=== PATIENT | female | born 1990 | race Caucasian/White ===

== ENCOUNTER 2017-08-10 12:01 | Inpatient (IN) ==
[2017-08-10 12:54] LABS: Basophils % 0.2 % (0.0-0.8); Eosinophils # 0.2 10*3/uL (0.0-0.87); Eosinophils % 2.6 % (0.00-10.9); Hematocrit 28.2 VOL% (35.7-47.0); Hemoglobin 8.6 GM/DL (12.0-16.0); Immature Granulocytes % 1.7 %; Immature Granulocytes Absolute 0.11 #; Lymphocytes # 1.3 10*3/uL (1.4-4.0); Lymphocytes % 20.4 % (21.3-54.2); Mean Corpuscular HGB Conc 30.5 GM/DL (32-36); Mean Corpuscular Hemoglobin 25 PG (27-34); Mean Corpuscular Volume 80.3 FL (87-102); Mean Platelet Volume 9.9 FL (9.6-12.0); Monocytes # 0.4 10*3/uL (0.11-0.8); Monocytes % 6.6 % (1.7-12.7); Neutrophils # 4.5 10*3/uL (1.4-7.4); Neutrophils % 68.5 % (38.7-73.9); Platelet Count 151 T/CUMM (130-400); Red Blood Count 3.51 MC/CUMM (3.8-5.5); Red Cell Distribution Width 15.8 % (9.3-17.3); White Blood Count 6.5 T/CUMM (4-12)
[2017-08-10] MEDS: hydrALAZINE 20 MG/1 ML VIAL IV PRN ×2 (13:01→13:15)
[2017-08-10 13:03] LABS: PT Patient Result 10.7 SECS; Partial Thromboplastin Time 28.2 SECS (0-40)
[2017-08-10] MEDS ORDERED: ONDANSETRON 4 MG/2 ML VIAL IV PRN (13:05)
[2017-08-10] MEDS ORDERED: MEPERIDINE 50 MG/1 ML VIAL IV PRN (13:05)
[2017-08-10] MEDS ORDERED: LACTATED RINGERS 500 ML IV PRN (13:05)
[2017-08-10] MEDS ORDERED: BUTORPHANOL 2 MG/ML VIAL IV PRN (13:05)
[2017-08-10] MEDS ORDERED: diphenhydrAMINE 50 MG/1 ML VIAL IV PRN ×2 (13:11)
[2017-08-10] MEDS ORDERED: hydrOXYzine HCL 25 MG/1 ML VIAL IM PRN (13:11)
[2017-08-10] MEDS ORDERED: FAMOTIDINE 20 MG/2 ML VIAL IV ONE (13:11)
[2017-08-10] MEDS ORDERED: ePHEDrine 50 MG/ML AMP IV PRN (13:11)
[2017-08-10] MEDS ORDERED: CITRIC ACID/SODIUM CITRATE 30 ML UDCUP PO ONE (13:11)
[2017-08-10] MEDS ORDERED: LACTATED RINGERS 1,000 ML IV ONE (13:11)
[2017-08-10 13:26] LABS: Alanine Aminotransferase 9 U/L (13-56); Albumin 2.5 G/DL (3.4-5.0); Alkaline Phosphatase 159 U/L (45-117); Aspartate Amino Transferase 13 U/L (0-37); Bilirubin,Direct < 0.100 MG/DL (0.0-0.20); Blood Urea Nitrogen 6 MG/DL (7-18); Calcium 7.8 MG/DL (8.5-10.1); Glucose 72 MG/DL (74-106); Osmolality,Calculated 269.8 MOS/KG (273-304); Potassium 4.1 MMOL/L (3.5-5.1); Sodium 137 MMOL/L (136-145); Total Protein 5.2 G/DL (6.4-8.3); Uric Acid 4.4 MG/DL (2.6-6.0)
[2017-08-10] MEDS ORDERED: fentaNYL 2 MCG/ROPIV 0.2% EPID 150 ML EPIDURAL SCH (13:30)
[2017-08-10] MEDS ORDERED: OXYTOCIN/LR 20 UNIT/1,000 ML BAG IV SCH (13:30)
[2017-08-10] MEDS: LACTATED RINGERS 1,000 ML IV SCH ×2 (13:40→14:50)
[2017-08-10 15:50] LABS: Apearance,Urine CLEAR (Clear); Bilirubin,Urine Negative (Negative); Blood, Urine Negative (Negative); Glucose,Urine (UA) Negative (Negative); Ketones,Urine 5 mg/dL (Negative); Nitrite,Urine Negative (Negative); Protein,Urine Negative; RBC,Urine <1 /HPF (0-4); Urine Color Colorless (Yellow); Urine Specific Gravity 1.001 (1.001-1.035); Urine Urobilinogen < 2.0 EU/DL (0.2-1.0); WBC,Urine <1 /HPF (0-6)
[2017-08-10] MEDS ORDERED: ACETAMINOPHEN/CODEINE 300-30 MG TABLET PO PRN (17:49)
[2017-08-10 17:55] LABS: Cord Venous Blood HCO3 21.5 MMOL/L; Cord Venous Blood PCO2 37.3 MMHG; Cord Venous Blood PO2 24.5
[2017-08-10 18:38] LABS: Barbiturates Screen,Urine Negative (Negative); Benzodiazepines Screen,Urine Negative (Negative); Cannabinoid Screen,Urine Negative (Negative); Opiate Screen,Urine Negative (Negative); Phencyclidine Screen,Urine Negative (Negative)
[2017-08-10] MEDS ORDERED: LABETALOL 20 MG/4 ML SYRINGE IV ONE (19:33)
[2017-08-10] MEDS ORDERED: HYDROCORTISONE 2.5% RECTAL CREAM 30 GM TUBE TOP PRN (19:51)
[2017-08-10] MEDS ORDERED: DIPH/TET/ACEL PERT BOOSTER VACCINE 0.5 ML VIAL IM ONE (19:51)
[2017-08-10] MEDS ORDERED: ACETAMINOPHEN 325 MG TABLET PO PRN (19:51)
[2017-08-10] MEDS ORDERED: RHO(D) IMMUNE GLOBULIN 300 MCG SYRINGE IM ONE (19:51)
[2017-08-10] MEDS ORDERED: oxyCODONE/ACETAMINOPHEN 5-325 MG TABLET PO PRN (19:51)
[2017-08-10] MEDS ORDERED: WITCH HAZEL PADS 100/JAR TOP PRN (19:51)
[2017-08-10] MEDS ORDERED: BISACODYL 10 MG SUPP RECTAL PRN (19:51)
[2017-08-10] MEDS ORDERED: LANOLIN 50% CREAM 0.3 OZ TUBE TOP PRN (19:51)
[2017-08-10] MEDS ORDERED: BENZOCAINE 20%/MENTHOL 0.5% SPRAY 56 GM CAN TOP PRN (19:51)
[2017-08-10] MEDS ORDERED: MEASLES/MUMPS/RUBELLA VACCINE 0.5 ML VIAL SUBCUT ONE (19:51)
[2017-08-10] MEDS: IBUPROFEN 800 MG TABLET PO PRN (19:59)
[2017-08-10] MEDS ORDERED: OXYTOCIN/LR 20 UNIT/1,000 ML BAG IV ONE (20:29)
[2017-08-10] MEDS ORDERED: METHYLDOPA 250 MG TABLET PO SCH (21:00)
[2017-08-10] MEDS: oxyCODONE/ACETAMINOPHEN 5-325 MG TABLET PO PRN (22:46)
[2017-08-11] MEDS: IBUPROFEN 800 MG TABLET PO PRN ×3 (02:40→21:31)
[2017-08-11] MEDS: DOCUSATE SODIUM 100 MG CAPSULE PO SCH ×3 (03:33→21:31)
[2017-08-11] MEDS: oxyCODONE/ACETAMINOPHEN 5-325 MG TABLET PO PRN ×3 (04:13→20:21)
[2017-08-11 06:47] LABS: Basophils % 0.3 % (0.0-0.8); Mean Corpuscular HGB Conc 31.1 GM/DL (32-36); Mean Corpuscular Hemoglobin 25 PG (27-34); Red Cell Distribution Width 15.7 % (9.3-17.3)
[2017-08-11 06:57] LABS: Eosinophils # 0.2 10*3/uL (0.0-0.87); Eosinophils % 1.8 % (0.00-10.9); Hematocrit 25.7 VOL% (35.7-47.0); Immature Granulocytes % 1.2 %; Immature Granulocytes Absolute 0.11 #; Lymphocytes # 1.6 10*3/uL (1.4-4.0); Lymphocytes % 16.8 % (21.3-54.2); Mean Corpuscular Volume 79.3 FL (87-102); Mean Platelet Volume 10.9 FL (9.6-12.0); Monocytes # 0.6 10*3/uL (0.11-0.8); Monocytes % 6.8 % (1.7-12.7); Neutrophils # 6.8 10*3/uL (1.4-7.4); Neutrophils % 73.1 % (38.7-73.9); Platelet Count 158 T/CUMM (130-400); Red Blood Count 3.24 MC/CUMM (3.8-5.5); White Blood Count 9.3 T/CUMM (4-12)
[2017-08-11] MEDS: FERROUS SULFATE 325 MG TABLET PO SCH ×2 (09:21→21:31)
[2017-08-11] MEDS ORDERED: SUMAtriptan 6 MG/0.5 ML VIAL SUBCUT PRN (15:52)
[2017-08-11] MEDS ORDERED: BUTALBITAL/ACETAMIN/CAFFEINE 50-325-40 MG TABLET PO ONE (16:00)
[2017-08-12] MEDS: oxyCODONE/ACETAMINOPHEN 5-325 MG TABLET PO PRN ×4 (04:21→23:02)
[2017-08-12] MEDS: BUTALBITAL/ACETAMIN/CAFFEINE 50-325-40 MG TABLET PO SCH ×3 (06:29→16:57)
[2017-08-12] MEDS: DOCUSATE SODIUM 100 MG CAPSULE PO SCH ×2 (09:20→21:30)
[2017-08-12] MEDS: IBUPROFEN 800 MG TABLET PO PRN ×2 (09:23→21:33)
[2017-08-12] MEDS: FERROUS SULFATE 325 MG TABLET PO SCH ×2 (09:36→21:30)
[2017-08-12] MEDS ORDERED: INFLUENZA VIRUS VACCINE 0.5 ML SYRINGE IM ONE (13:29)
[2017-08-12] MEDS: TRIAMCINOLONE 0.1% CREAM 15 GM TUBE TOP SCH ×2 (16:42→21:36)
[2017-08-13] MEDS: BUTALBITAL/ACETAMIN/CAFFEINE 50-325-40 MG TABLET PO SCH ×2 (00:13→08:54)
[2017-08-13] MEDS: FERROUS SULFATE 325 MG TABLET PO SCH (08:51)
[2017-08-13] MEDS: oxyCODONE/ACETAMINOPHEN 5-325 MG TABLET PO PRN (08:51)
[2017-08-13] MEDS: DOCUSATE SODIUM 100 MG CAPSULE PO SCH (09:00)
[2017-08-13] MEDS: TRIAMCINOLONE 0.1% CREAM 15 GM TUBE TOP SCH (09:00)
[2017-08-13 09:28] VITALS: BP 144/85
[2017-08-13] MEDS ORDERED: INFLUENZA VIRUS VACCINE 0.5 ML SYRINGE IM ONE (11:31)
== END 2017-08-13 13:45 | disposition home or self-care (01) | DRG 560 ==
LOC: N.LDOUT 12:01 → N.LD 12:05 → N.OB 21:00
PROVIDERS: ADMIT Obstetrics & Gynecology; ATTEND Obstetrics & Gynecology

== ENCOUNTER 2020-05-15 01:19 | Inpatient (IN) ==
[2020-05-15 02:16] LABS: Bilirubin,Urine Negative (Negative); Blood, Urine Negative (Negative); Glucose,Urine (UA) Negative (Negative); Ketones,Urine Negative (Negative); Mucus,Urine Occasional /LPF (Occasional); Nitrite,Urine Negative (Negative); Protein,Urine Negative; RBC,Urine 1 /HPF (0-4); Squamous Epithelial Cell,Urine Occasional /HPF (0-10); Urine Appearance CLEAR (Clear); Urine Color Yellow (Yellow); Urine Specific Gravity 1.023 (1.001-1.035); Urine Urobilinogen < 2.0 EU/DL (0.2-1.0); WBC,Urine 2 /HPF (0-6)
[2020-05-15 02:29] LABS: Barbiturates Screen,Urine Negative (Negative); Benzodiazepines Screen,Urine Negative (Negative); Cannabinoid Screen,Urine Negative (Negative); Opiate Screen,Urine Negative (Negative); Phencyclidine Screen,Urine Negative (Negative)
[2020-05-15] MEDS ORDERED: LACTATED RINGERS 250 ML IV ONE (08:52)
[2020-05-15] MEDS ORDERED: ONDANSETRON 4 MG/2 ML VIAL IV PRN ×2 (08:52→16:42)
[2020-05-15] MEDS ORDERED: LACTATED RINGERS 1,000 ML IV SCH (09:00)
[2020-05-15] MEDS ORDERED: OXYTOCIN/LR 20 UNIT/1,000 ML BAG IV SCH (09:00)
[2020-05-15 09:20] LABS: Basophils % 0.3 % (0.0-0.8); Eosinophils # 0.3 10*3/uL (0.0-0.87); Eosinophils % 2.2 % (0.00-10.9); Hematocrit 27.4 VOL% (35.7-47.0); Hemoglobin 8.3 GM/DL (12.0-16.0); Immature Granulocytes % 3.8 %; Immature Granulocytes Absolute 0.46 #; Lymphocytes % 16.7 % (21.3-54.2); Mean Corpuscular HGB Conc 30.3 GM/DL (32-36); Mean Corpuscular Volume 72.5 FL (87-102); Mean Platelet Volume 10.5 FL (9.6-12.0); Monocytes % 5.4 % (1.7-12.7); NRBC # 0.02 10*3/uL; Neutrophils % 71.6 % (38.7-73.9); Platelet Count 172 T/CUMM (130-400); Red Blood Count 3.78 MC/CUMM (3.8-5.5); Red Cell Distribution Width 16.7 % (9.3-17.3); White Blood Count 12.2 T/CUMM (4-12)
[2020-05-15] MEDS ORDERED: PROMETHAZINE 25 MG/1 ML VIAL IM ONE (09:39)
[2020-05-15] MEDS ORDERED: LACTATED RINGERS 250 ML IV PRN (09:39)
[2020-05-15] MEDS ORDERED: FAMOTIDINE 20 MG/2 ML VIAL IV ONE (09:39)
[2020-05-15] MEDS ORDERED: hydrOXYzine HCL 25 MG/1 ML VIAL IM PRN (09:39)
[2020-05-15] MEDS ORDERED: NALOXONE 0.4 MG/ML VIAL IV PRN (09:39)
[2020-05-15] MEDS ORDERED: CITRIC ACID/SODIUM CITRATE 30 ML UDCUP PO ONE (09:39)
[2020-05-15] MEDS ORDERED: diphenhydrAMINE 50 MG/1 ML VIAL IV PRN ×2 (09:39)
[2020-05-15 09:41] LABS: Alanine Aminotransferase 11 U/L (13-56); Albumin 2.2 G/DL (3.4-5.0); Alkaline Phosphatase 194 U/L (45-117); Aspartate Amino Transferase 14 U/L (0-37); Bilirubin,Total < 0.39 MG/DL (0.2-1.0); Blood Urea Nitrogen 6 MG/DL (7-18); Calcium 8.6 MG/DL (8.5-10.1); Estimated Glom Filtration Rate 131 ML/MIN; Glucose 114 MG/DL (74-106)
[2020-05-15] MEDS ORDERED: LACTATED RINGERS 1,000 ML IV ONE (09:45)
[2020-05-15] MEDS ORDERED: fentaNYL 2 MCG/ROPIV 0.2% EPID 100 ML EPIDURAL SCH (10:00)
[2020-05-15 10:17] LABS: Hepatitis B Surface Ag Quant < 0.10 Index; Hepatitis B Surface Ag Result Negative (Negative)
[2020-05-15 10:45] LABS: HIV Antigen/Antibody Result Nonreactive (Nonreactive)
[2020-05-15] MEDS: ePHEDrine 50 MG/ML VIAL IV PRN ×3 (11:06→11:11)
[2020-05-15] MEDS ORDERED: CLINDAMYCIN INJ 900 MG in PREMIX 1 EACH IV SCH (12:30)
[2020-05-15 13:16] LABS: Bacteria,Urine Occasional /HPF (Few); Bilirubin,Urine Negative (Negative); Blood, Urine Moderate mg/dL (Negative); Glucose,Urine (UA) Negative (Negative); Ketones,Urine Negative (Negative); Nitrite,Urine Negative (Negative); Protein,Urine Negative; RBC,Urine 2 /HPF (0-4); Urine Appearance CLEAR (Clear); Urine Color Straw (Yellow); Urine Specific Gravity 1.009 (1.001-1.035); Urine Urobilinogen < 2.0 EU/DL (0.2-1.0); WBC,Urine 1 /HPF (0-6)
[2020-05-15] MEDS ORDERED: LACTATED RINGERS 1,000 ML IV PRN (13:16)
[2020-05-15] MEDS ORDERED: OXYTOCIN/LR 20 UNIT/1,000 ML BAG IV ONE ×2 (14:12→16:42)
[2020-05-15] MEDS ORDERED: TRANEXAMIC ACID 1,000 MG/10 ML VIAL ONE (14:12)
[2020-05-15] MEDS ORDERED: miSOPROStoL 200 MCG TABLET ONE (14:12)
[2020-05-15] MEDS ORDERED: CARBOPROST TROMETHAMINE 250 MCG/ML AMP IM ONE (14:13)
[2020-05-15] MEDS ORDERED: METHYLERGONOVINE 0.2 MG/1 ML AMP ONE (14:13)
[2020-05-15] MEDS ORDERED: HYDROCORTISONE 2.5% RECTAL CREAM 30 GM TUBE TOP PRN (16:42)
[2020-05-15] MEDS ORDERED: WITCH HAZEL PADS 100/JAR TOP PRN (16:42)
[2020-05-15] MEDS ORDERED: oxyCODONE/ACETAMINOPHEN 5-325 MG TABLET PO PRN (16:42)
[2020-05-15] MEDS ORDERED: MEASLES/MUMPS/RUBELLA VACCINE 0.5 ML VIAL SUBCUT ONE (16:42)
[2020-05-15] MEDS ORDERED: LANOLIN 50% CREAM 0.3 OZ TUBE TOP PRN (16:42)
[2020-05-15] MEDS ORDERED: BISACODYL 10 MG SUPP RECTAL PRN (16:42)
[2020-05-15] MEDS ORDERED: BENZOCAINE 20%/MENTHOL 0.5% SPRAY 56 GM CAN TOP PRN (16:42)
[2020-05-15] MEDS ORDERED: ACETAMINOPHEN 325 MG TABLET PO PRN (16:42)
[2020-05-15] MEDS ORDERED: DIPH/TET/ACEL PERT BOOSTER VACCINE 0.5 ML VIAL IM ONE (16:42)
[2020-05-15] MEDS ORDERED: RHO(D) IMMUNE GLOBULIN 300 MCG SYRINGE IM ONE (16:42)
[2020-05-15 17:17] LABS: Cord Venous Blood HCO3 20.6 MMOL/L; Cord Venous Blood PCO2 35.3 MMHG; Cord Venous Blood PO2 40.3 MMHG
[2020-05-15] MEDS: IBUPROFEN 800 MG TABLET PO PRN (17:53)
[2020-05-15] MEDS: oxyCODONE/ACETAMINOPHEN 5-325 MG TABLET PO PRN (18:59)
[2020-05-15] MEDS: DOCUSATE SODIUM 100 MG CAPSULE PO SCH (20:35)
[2020-05-16] MEDS: IBUPROFEN 800 MG TABLET PO PRN ×3 (00:04→23:57)
[2020-05-16] MEDS: oxyCODONE/ACETAMINOPHEN 5-325 MG TABLET PO PRN ×3 (01:09→16:57)
[2020-05-16 05:40] LABS: Basophils % 0.2 % (0.0-0.8); Eosinophils # 0.1 10*3/uL (0.0-0.87); Eosinophils % 0.9 % (0.00-10.9); Hematocrit 23.7 VOL% (35.7-47.0); Hemoglobin 7.3 GM/DL (12.0-16.0); Immature Granulocytes % 1.4 %; Immature Granulocytes Absolute 0.18 #; Lymphocytes # 1.8 10*3/uL (1.4-4.0); Lymphocytes % 14.1 % (21.3-54.2); Mean Corpuscular HGB Conc 30.8 GM/DL (32-36); Mean Corpuscular Volume 72.5 FL (87-102); Mean Platelet Volume 10.8 FL (9.6-12.0); Monocytes % 5.4 % (1.7-12.7); NRBC # 0.03 10*3/uL; Platelet Count 174 T/CUMM (130-400); Red Blood Count 3.27 MC/CUMM (3.8-5.5); Red Cell Distribution Width 16.6 % (9.3-17.3); White Blood Count 12.8 T/CUMM (4-12)
[2020-05-16] MEDS: DOCUSATE SODIUM 100 MG CAPSULE PO SCH ×2 (08:18→22:13)
[2020-05-17 09:11] VITALS: BP 120/81
[2020-05-17] MEDS: DOCUSATE SODIUM 100 MG CAPSULE PO SCH (09:45)
[2020-05-17] MEDS: oxyCODONE/ACETAMINOPHEN 5-325 MG TABLET PO PRN (10:01)
[2020-05-17] MEDS ORDERED: INFLUENZA VIRUS VACCINE 0.5 ML SYRINGE IM ONE (10:06)
== END 2020-05-17 15:25 | disposition home or self-care (01) | DRG 560 ==
LOC: N.LDOUT 01:19 → N.LD 01:19 → N.OB 18:29
PROVIDERS: ADMIT Obstetrics & Gynecology; ATTEND Obstetrics & Gynecology

== ENCOUNTER 2022-08-11 18:12 | Inpatient (IN) ==
[2022-08-11] MEDS ORDERED: miSOPROStoL 200 MCG TABLET RECTAL PRN (18:40)
[2022-08-11] MEDS ORDERED: ONDANSETRON 4 MG/2 ML VIAL IV PRN ×2 (18:40→20:01)
[2022-08-11] MEDS ORDERED: BUTORPHANOL 2 MG/ML VIAL IV PRN (18:40)
[2022-08-11] MEDS ORDERED: OXYTOCIN/LR 20 UNIT/1,000 ML BAG IV ONE ×2 (18:40→20:01)
[2022-08-11] MEDS ORDERED: MEPERIDINE 50 MG/1 ML VIAL IV PRN (18:40)
[2022-08-11] MEDS ORDERED: CARBOPROST TROMETHAMINE 250 MCG/ML AMP IM PRN (18:40)
[2022-08-11] MEDS ORDERED: TRANEXAMIC ACID 1,000 MG in SODIUM CHLORIDE 0.9% 100 ML IV PRN (18:40)
[2022-08-11] MEDS ORDERED: METHYLERGONOVINE 0.2 MG/1 ML AMP IM PRN (18:40)
[2022-08-11] MEDS ORDERED: LACTATED RINGERS 1,000 ML IV SCH (19:00)
[2022-08-11 19:03] LABS: Basophils % 0.2 % (0.0-0.8); Eosinophils # 0.3 10*3/uL (0.0-0.87); Eosinophils % 2.5 % (0.00-10.9); Hematocrit 24.3 VOL% (35.7-47.0); Hemoglobin 7.4 GM/DL (12.0-16.0); Immature Granulocytes % 1.4 %; Immature Granulocytes Absolute 0.17 #; Lymphocytes # 1.8 10*3/uL (1.4-4.0); Lymphocytes % 14.1 % (21.3-54.2); Mean Corpuscular HGB Conc 30.5 GM/DL (32-36); Mean Corpuscular Volume 71.3 FL (87-102); Mean Platelet Volume 10.2 FL (9.6-12.0); Monocytes # 0.6 10*3/uL (0.11-0.8); Monocytes % 4.8 % (1.7-12.7); NRBC # 0.02 10*3/uL; Platelet Count 213 T/CUMM (130-400); Red Blood Count 3.41 MC/CUMM (3.8-5.5); Red Cell Distribution Width 16.7 % (9.3-17.3); White Blood Count 12.4 T/CUMM (4-12)
[2022-08-11] MEDS ORDERED: OXYTOCIN 10 UNIT/ML VIAL ONE (19:30)
[2022-08-11 19:59] LABS: Cord Venous Blood HCO3 19.8 MMOL/L; Cord Venous Blood PCO2 36.1 MMHG; Cord Venous Blood PO2 29.2
[2022-08-11] MEDS ORDERED: BENZOCAINE 20%/MENTHOL 0.5% SPRAY 56 GM CAN TOP PRN (20:01)
[2022-08-11] MEDS ORDERED: HYDROCORTISONE 2.5% RECTAL CREAM 30 GM TUBE TOP PRN (20:01)
[2022-08-11] MEDS ORDERED: WITCH HAZEL PADS 100/JAR TOP PRN (20:01)
[2022-08-11] MEDS ORDERED: BISACODYL 10 MG SUPP RECTAL PRN (20:01)
[2022-08-11] MEDS ORDERED: LANOLIN 50% CREAM 0.3 OZ TUBE TOP PRN (20:01)
[2022-08-11] MEDS ORDERED: DIPH/TET/ACEL PERT BOOSTER VACCINE 0.5 ML VIAL IM ONE (20:01)
[2022-08-11] MEDS ORDERED: MEASLES/MUMPS/RUBELLA VACCINE 0.5 ML VIAL SUBCUT ONE (20:01)
[2022-08-11] MEDS ORDERED: RHO(D) IMMUNE GLOBULIN 300 MCG SYRINGE IM ONE (20:01)
[2022-08-11] MEDS: oxyCODONE/ACETAMINOPHEN 5-325 MG TABLET PO PRN (20:20)
[2022-08-11 21:41] LABS: Bilirubin,Urine Small mg/dL (Negative); Blood, Urine Moderate mg/dL (Negative); Glucose,Urine (UA) Negative (Negative); Ketones,Urine 40 mg/dL (Negative); Nitrite,Urine Negative (Negative); Protein,Urine 100 mg/dL (Negative); Urine Appearance Slightly Cloudy (Clear); Urine Color Dark Yellow (Yellow); Urine Specific Gravity >= 1.030 (1.001-1.035); Urine Urobilinogen 0.2 eU/dL (<2.0)
[2022-08-11 21:45] LABS: Bacteria,Urine Occasional /HPF (Few); Mucus,Urine Many /LPF (Occasional); RBC,Urine 16 /HPF (0-4); Squamous Epithelial Cell,Urine Many /HPF (0-10)
[2022-08-11 22:04] LABS: Barbiturates Screen,Urine Negative (Negative); Benzodiazepines Screen,Urine Negative (Negative); Cannabinoid Screen,Urine Negative (Negative); Opiate Screen,Urine Negative (Negative); Phencyclidine Screen,Urine Negative (Negative)
[2022-08-11] MEDS: IBUPROFEN 800 MG TABLET PO PRN (22:12)
[2022-08-11] MEDS: DOCUSATE SODIUM 100 MG CAPSULE PO SCH (22:14)
[2022-08-11] MEDS: ARIPiprazole 10 MG TABLET PO SCH (23:29)
[2022-08-12] MEDS: ACETAMINOPHEN 325 MG TABLET PO PRN ×2 (00:57→00:59)
[2022-08-12] MEDS: oxyCODONE/ACETAMINOPHEN 5-325 MG TABLET PO PRN ×4 (02:29→22:23)
[2022-08-12] MEDS ORDERED: MAGNESIUM HYDROXIDE SUSP 30 ML UDCUP PO PRN (02:30)
[2022-08-12 04:56] LABS: Basophils % 0.1 % (0.0-0.8); Eosinophils # 0.1 10*3/uL (0.0-0.87); Eosinophils % 0.9 % (0.00-10.9); Hematocrit 27.1 VOL% (35.7-47.0); Hemoglobin 8.4 GM/DL (12.0-16.0); Immature Granulocytes % 1.4 %; Immature Granulocytes Absolute 0.19 #; Lymphocytes # 1.4 10*3/uL (1.4-4.0); Lymphocytes % 9.8 % (21.3-54.2); Mean Corpuscular Volume 71.9 FL (87-102); Mean Platelet Volume 10.2 FL (9.6-12.0); Monocytes # 0.9 10*3/uL (0.11-0.8); Monocytes % 6.4 % (1.7-12.7); NRBC # 0.02 10*3/uL; Neutrophils % 81.4 % (38.7-73.9); Platelet Count 158 T/CUMM (130-400); Red Blood Count 3.77 MC/CUMM (3.8-5.5); Red Cell Distribution Width 16.3 % (9.3-17.3); White Blood Count 13.7 T/CUMM (4-12)
[2022-08-12] MEDS: IBUPROFEN 800 MG TABLET PO PRN ×3 (06:04→22:22)
[2022-08-12] MEDS: DOCUSATE SODIUM 100 MG CAPSULE PO SCH ×2 (08:26→20:52)
[2022-08-12] MEDS: IRON (CARBONYL)/VIT C/B12/FA TABLET PO SCH ×2 (08:26→20:54)
[2022-08-12] MEDS: ARIPiprazole 10 MG TABLET PO SCH (20:53)
[2022-08-13] MEDS: oxyCODONE/ACETAMINOPHEN 5-325 MG TABLET PO PRN ×2 (04:44→11:26)
[2022-08-13] MEDS: IRON (CARBONYL)/VIT C/B12/FA TABLET PO SCH (08:37)
[2022-08-13] MEDS: DOCUSATE SODIUM 100 MG CAPSULE PO SCH (08:38)
[2022-08-13] MEDS: IBUPROFEN 800 MG TABLET PO PRN (08:38)
[2022-08-13 10:49] VITALS: BP 118/76
== END 2022-08-13 15:00 | disposition home or self-care (01) | DRG 560 ==
LOC: N.LDOUT 18:12 → N.LD 18:14 → N.OB 08-12 00:12
PROVIDERS: ADMIT Obstetrics & Gynecology; ATTEND Obstetrics & Gynecology